=== PATIENT | male | born 1960 | race Caucasian/White ===

== ENCOUNTER 2019-02-14 06:56 | Emergency (ER) | payer BC ==
[2019-02-14 07:21] LABS: CHLORIDE,CL 105 mEq/L (98-106); SODIUM,NA 142 mEq/L (136-145)
[2019-02-14] MEDS ORDERED: Diltiazem 25 MG/5 ML SDV IVPUSH ONE (07:38)
--- NOTE | 2019-02-14 07:56 | EDM.PDOC ---
ED HPI GENERAL MEDICAL PROBLEM - General Chief Complaint: General Stated Complaint: palpitations Time Seen by Provider: 02/14/19 07:30 Source of Information: Reports: Patient History Limitations: Reports: No Limitations - History of Present Illness INITIAL COMMENTS - FREE TEXT/NARRATIVE: Patient presents to ER per private vehicle with palpitations. States has had similar concerns like this many years ago, history of atrial fib. Had some propanefone left at home from 15 years ago so took one of these meds but didn't see any improvement with this so presented here. Did have thorough work up at that time, was on meds for a short time but converted to normal rhythm and has done well since. He admits to mild chest discomfort. No shortness of breath. Has been recently started on blood pressure meds in the last few months. Was initially started on Lisinopril but developed a cough. Switched to Losartan 50 mg and has had his dose increased to 100 mg to get better control of his blood pressure. Onset: Today, Sudden Duration: Hour(s): Location: Reports: Chest Quality: Reports: Ache, Dull Severity: Mild Associated Symptoms: Reports: Chest Pain. Denies: Confusion, Cough, Diaphoresis , Fever/Chills, Loss of Appetite, Nausea/Vomiting, Shortness of Breath, Weakness Treatments CUSTOMER SALES REPRESENTATIVE: Reports: Other (see below) Other Treatments CUSTOMER SALES REPRESENTATIVE: propanfenome - Related Data Allergies Allergy/AdvReac Type Severity Reaction Status Date / Time Penicillins Allergy UNKNOWN Verified 02/14/19 07:12 ERYTHROMYCIN Allergy UNKNOWN Uncoded 02/14/19 07:12 SULFA ANTIBIOTICS Allergy UNKNOWN Uncoded 02/14/19 07:12 Home Meds: Home Meds Ibuprofen 400 mg PO ASDIRECTED PRN 04/07/16 [History] Ascorbic Acid [Vitamin C] 1 tab PO DAILY 02/14/19 [History] Cholecalciferol (Vitamin D3) [Vitamin D3] 1 tab PO DAILY 02/14/19 [History] Losartan/Hydrochlorothiazide [Losartan-HCTZ 100-25 MG] 1 each PO DAILY 02/14/19 [History] Magnesium Oxide [Magnesium] 1 tab PO DAILY 02/14/19 [History] Past Medical History Cardiovascular History: Reports: Afib, Hypertension Gastrointestinal History: Reports: Diverticulosis Endocrine/Metabolic History: Reports: Vitamin D Deficiency - Past Surgical History HEENT Surgical History: Reports: Tonsillectomy GI Surgical History: Reports: Appendectomy, Colon Musculoskeletal Surgical History: Reports: Arthroscopic Procedure Social & Family History - Family History Family Medical History: Noncontributory - Tobacco Use Smoking Status *Q: Former Smoker Used Tobacco, but Quit: Yes Month/Year Tobacco Last Used: years ago - Caffeine Use Caffeine Use: Reports: Coffee ED ROS GENERAL - Review of Systems Review Of Systems: See Below Constitutional: Reports: Fatigue. Denies: Fever, Chills, Malaise, Weakness HEENT: Denies: Ear Pain, Sinus Problem, Throat Pain, Vertigo Respiratory: Denies: Shortness of Breath, Cough Cardiovascular: Reports: Chest Pain (mild chest discomfort), Lightheadedness. Denies: Edema Endocrine: Reports: Fatigue GI/Abdominal: Denies: Abdominal Pain, Nausea, Vomiting : Reports: No Symptoms Musculoskeletal: Reports: No Symptoms Skin: Reports: No Symptoms Neurological: Reports: No Symptoms Psychiatric: Reports: No Symptoms ED EXAM, GENERAL - Physical Exam Exam: See Below Exam Limited By: No Limitations General Appearance: Alert, WD/WN, No Apparent Distress Ears: Normal External Exam, Normal TMs Nose: Normal Inspection, Normal Mucosa, No Blood Throat/Mouth: Normal Inspection, Normal Oropharynx Head: Normocephalic Neck: Normal Inspection, Supple, Non-Tender Respiratory/Chest: No Respiratory Distress, Lungs Clear, Normal Breath Sounds Cardiovascular: Irregularly Irregular GI/Abdominal: Normal Bowel Sounds, Soft, Non-Tender Extremities: Normal Inspection, No Pedal Edema Neurological: Alert, Oriented Skin Exam: Warm, Dry Course - Vital Signs Last Recorded V/S: Last Vital Signs Temp 96.9 F 02/14/19 07:14 Pulse 120 H 02/14/19 07:55 Resp 18 02/14/19 07:55 BP 100/64 02/14/19 07:55 Pulse Ox 97 02/14/19 07:55 - Orders/Labs/Meds Orders: Active Orders 24 hr Category Date Time Status EKG Documentation Completion [RC] STAT Care 02/14/19 07:43 Active Chest 2V [CR] Routine Exams 02/14/19 Ordered Labs: Laboratory Tests 02/14/19 02/14/19 02/14/19 Range/Units 07:02 07:02 07:02 WBC 5.3 (5.0-10.0) 10^3/uL RBC 5.01 (4.50-6.00) 10^6/uL Hgb 15.9 (14.0-18.0) g/dL Hct 46.3 (40.0-54.0) % MCV 92.4 (82.0-94.0) fL MCH 31.7 (27.0-32.0) pg MCHC 34.3 (33.0-38.0) g/dL RDW Coeff of [place]z 12.4 (11.0-15.0) % Plt Count 180 (150-400) 10^3/uL Neut % (Auto) 40.7 (35-85) % Lymph % (Auto) 41.2 (10-55) % [place] % (Auto) 10.2 (0-16) % Eos % (Auto) 7.3 H (0-5) % Baso % (Auto) 0.6 (0-3) % Neut # (Auto) 2.16 (1.80-7.00) 10^3/uL Lymph # (Auto) 2.19 (1.00-4.80) 10^3/uL [place] # (Auto) 0.54 (0.00-0.80) 10^3/uL Eos # (Auto) 0.39 (0.00-0.45) 10^3/uL Baso # (Auto) 0.03 10^3/uL PT 10.2 (9.7-12.3) SEC INR 0.99 (0.92-1.18) APTT 27.4 (23.2-32.3) SEC Sodium 142 (136-145) mEq/L Potassium 3.8 (3.5-5.0) mEq/L Chloride 105 (98-106) mEq/L Carbon Dioxide 28 (21-32) mmol/L BUN 24 H (7-18) mg/dL Creatinine 0.9 (0.7-1.3) mg/dL Est Cr Clr Drug Dosing TNP Estimated GFR (MDRD) > 60 (>=60) mL/min Glucose 103 H (75-99) mg/dL Calcium 8.8 (8.4-10.1) mg/dL Lactate Dehydrogenase 184 (100-190) U/L Creatine Kinase 131 (35-232) U/L Troponin I < 0.017 (0.00-0.06) ng/mL Meds: Medications Discontinued Medications Generic Name Dose Route Start Last Admin Trade Name Matt PRN Reason Stop Dose Admin Apixaban 5 mg 02/14/19 08:08 Eliquis PO 02/14/19 08:09 ONETIME ONE Diltiazem HCl 10 mg 02/14/19 07:38 02/14/19 07:44 Diltiazem IVPUSH 02/14/19 07:39 10 mg ONETIME ONE Administration - Re-Assessments/Exams Free Text/Narrative Re-Assessment/Exam: 02/14/19 0745 Cardizem 10 mg IV given. Did slow rate but 110s, continues with atrial fib. Blood pressure did drop to 100/64. [address] [facility] and spoke with Dr. Casas, housekeeper/laundry assistant. Suggested would need cardioversion under conscious sedation. Give Eliquis 5 mg now. Spoke with Dr. Gee, ER physician about transfer. Both physicians agree to accept the patient in transfer. Risks and benefits discussed with patient. Risk of transfer includes vehicle crash, worsening condition, possible . Benefits of transfer include specialized cardiac care and intervention. Risks of non transfer include no specialized cardiac care at local facility, worsening status or possible . Benefits of non transfer include care close to home. Patient and agree to transfer. Departure - Departure Time of Disposition: 08:32 Disposition: DC/Tfer to Acute Hospital 02 Clinical Impression: Atrial fibrillation with RVR - Discharge Information *PRESCRIPTION DRUG MONITORING PROGRAM REVIEWED*: No *COPY OF PRESCRIPTION DRUG MONITORING REPORT IN PATIENT ORACIO: No Forms: ED Department Discharge Additional Instructions: Transfer ALS to [facility] to Dr. Casas, Dr. Gee. Keep NPO - My Orders Last 24 Hours: My Active Orders 02/14/19 Chest 2V [CR] Routine 02/14/19 07:43 EKG Documentation Completion [RC] STAT - Assessment/Plan Last 24 Hours: My Active Orders 02/14/19 Chest 2V [CR] Routine 02/14/19 07:43 EKG Documentation Completion [RC] STAT
[2019-02-14] MEDS ORDERED: Apixaban 5 MG Tab PO ONE (08:08)
[2019-02-14 09:16] VITALS: BP 122/79
== END 2019-02-14 09:59 ==
LOC: CC.ED 06:56
DX: I48.91 Unspecified atrial fibrillation (principal); I10 Essential (primary) hypertension; Z87.891 Personal history of nicotine dependence; Z79.899 Other long term (current) drug therapy; Z88.0 Allergy status to penicillin; Z88.1 Allergy status to other antibiotic agents; Z88.2 Allergy status to sulfonamides
CPT/HCPCS: 36415; 71046; 80048; 82550; 83615; 84484; 85025; 85610; 85730; 93005; 96374; 99285; A9270; J3490

== ENCOUNTER 2021-06-10 19:57 | Emergency (ER) | payer BC ==
[2021-06-10 20:09] VITALS: BP 152/90; PULSE 75
[2021-06-10] MEDS ORDERED: Take Home: Ciprofloxacin 500 MG Tab, 2 Tab Pack PO ONE (20:21)
[2021-06-10] MEDS ORDERED: Take Home: metroNIDAZOLE 500 MG Tab, 4 Tab Pack PO ONE (20:21)
--- NOTE | 2021-06-10 20:29 | EDM.PDOC ---
ED HPI GENERAL MEDICAL PROBLEM - General Chief Complaint: General Stated Complaint: ABD Pain Time Seen by Provider: 06/10/21 20:15 Source of Information: Reports: Patient History Limitations: Reports: No Limitations - History of Present Illness INITIAL COMMENTS - FREE TEXT/NARRATIVE: Reynaldo is a 61 year old male who presents to ER with complaints of lower quadrant abdominal pain. States "feels just like when have had diverticulitis in the past". Relates has had multiple episodes of this infection until had a colectomy done 4 years ago for it. Has done fairly well since that time but started having pain about 3 days ago. Got much worse today. No fevers. No chest congestion, cough. No nausea/vomiting. No bowel changes, no blood in stools. No urinary symptoms. Is requesting to not have a work up to include lab and xray, wanting to get started on antibiotics as had in the past and will come back if symptoms do not improve. "have been able to do this in the past" Onset: Gradual Duration: Day(s):, Getting Worse Location: Reports: Abdomen Quality: Reports: Ache Severity: Moderate Improves with: Reports: Medication Associated Symptoms: Denies: Confusion, Chest Pain, Cough, Fever/Chills, Loss of Appetite, Nausea/Vomiting, Shortness of Breath Treatments MANAGER STORE: Reports: NSAIDS mid lower abd Pain Score (Numeric/FACES): 4 - Related Data Allergies Allergy/AdvReac Type Severity Reaction Status Date / Time Penicillins Allergy UNKNOWN Verified 06/10/21 20:09 ERYTHROMYCIN Allergy UNKNOWN Uncoded 06/10/21 20:09 SULFA ANTIBIOTICS Allergy UNKNOWN Uncoded 06/10/21 20:09 Home Meds: Home Meds Ibuprofen 200 mg PO ASDIRECTED PRN 04/07/16 [History] Ascorbic Acid [Vitamin C] 1 tab PO DAILY 02/14/19 [History] Cholecalciferol (Vitamin D3) [Vitamin D3] 1 tab PO DAILY 02/14/19 [History] Magnesium Oxide [Magnesium] 1 tab PO DAILY 02/14/19 [History] Acetaminophen [Tylenol Extra Strength] 500 mg PO ASDIRECTED PRN 02/19/19 [History] Metoprolol Succinate [Toprol XL] 25 mg PO DAILY 02/19/19 [History] Past Medical History Cardiovascular History: Reports: Afib, Hypertension Gastrointestinal History: Reports: Diverticulosis Endocrine/Metabolic History: Reports: Vitamin D Deficiency - Past Surgical History HEENT Surgical History: Reports: Tonsillectomy GI Surgical History: Reports: Appendectomy, Colon Musculoskeletal Surgical History: Reports: Arthroscopic Procedure Social & Family History - Family History Family Medical History: No Pertinent Family History - Tobacco Use Tobacco Use Status *Q: Unknown Ever Used Tobacco - Caffeine Use Caffeine Use: Reports: Coffee ED ROS GENERAL - Review of Systems Review Of Systems: See Below Constitutional: Denies: Fever, Chills, Malaise, Weakness, Fatigue, Decreased Appetite HEENT: Denies: Ear Pain, Sinus Problem, Throat Pain, Vertigo Respiratory: Denies: Shortness of Breath, Cough Cardiovascular: Denies: Chest Pain, Edema, Lightheadedness Endocrine: Denies: Fatigue GI/Abdominal: Reports: Abdominal Pain. Denies: Black Stool, Bloody Stool, Constipation, Diarrhea, Nausea, Vomiting : Reports: No Symptoms Musculoskeletal: Reports: No Symptoms Skin: Reports: No Symptoms Neurological: Reports: No Symptoms Psychiatric: Reports: No Symptoms ED EXAM, GENERAL - Physical Exam Exam: See Below Exam Limited By: No Limitations General Appearance: Alert, WD/WN, No Apparent Distress Ears: Normal External Exam, Normal TMs Nose: Normal Inspection, Normal Mucosa, No Blood Throat/Mouth: Normal Inspection, Normal Oropharynx Head: Normocephalic Neck: Normal Inspection, Supple, Non-Tender Respiratory/Chest: No Respiratory Distress, Lungs Clear, Normal Breath Sounds Cardiovascular: Regular Rate, Rhythm GI/Abdominal: Normal Bowel Sounds, Soft, Tender (suprapubic and left lower quadrant tenderness with palpation) Extremities: Normal Inspection, No Pedal Edema Neurological: Alert, Oriented Skin Exam: Warm, Dry Course - Vital Signs Last Recorded V/S: Last Vital Signs Temp 97.4 F 06/10/21 20:07 Pulse 75 06/10/21 20:07 Resp 16 06/10/21 20:07 BP 152/90 H 06/10/21 20:07 Pulse Ox 98 06/10/21 20:07 - Orders/Labs/Meds Meds: Medications Discontinued Medications Generic Name Dose Route Start Last Admin Trade Name Freq PRN Reason Stop Dose Admin Ciprofloxacin 2 packet 06/10/21 20:21 Take Home: Ciprofloxacin 500 Mg Tab, 2 Tab Pack PO 06/10/21 20:22 ONETIME ONE Metronidazole 1 packet 06/10/21 20:21 Take Home: Metronidazole 500 Mg Tab, 4 Tab Pack PO 06/10/21 20:22 ONETIME ONE - Re-Assessments/Exams Free Text/Narrative Re-Assessment/Exam: 06/10/21 20:29 discussed use of meds and need to return if symptoms worsen or do not improve as would suggest labs and CT scan at that time. Departure - Departure Time of Disposition: 20:29 Disposition: Home, Self-Care 01 Condition: Good Clinical Impression: Diverticulitis - Discharge Information *PRESCRIPTION DRUG MONITORING PROGRAM REVIEWED*: No *COPY OF PRESCRIPTION DRUG MONITORING REPORT IN PATIENT ORACIO: No Instructions: Diverticulitis, [id number] Additional Instructions: 1. Push fluids 2. [place]/soft diet 3. Tylenol or ibuprofen for fever or discomfort 4. Cipro 500 mg every 12 hours for 10 days 5. Flagyl 500 mg twice a day for 7 days 6. Follow up if persistent pain, fevers, change in bowel or urinary issues. 7. Call with any questions or concerns. Sepsis Event Note (ED) - Evaluation Sepsis Screening Result: No Definite Risk - Focused Exam Vital Signs: Vital Signs Temp Pulse Resp BP Pulse Ox 06/10/21 20:07 97.4 F 75 16 152/90 H 98
== END 2021-06-10 20:47 | disposition home or self-care (01) ==
LOC: CC.ED 19:57
DX: K57.92 Diverticulitis of intestine, part unspecified, without perforation or abscess without bleeding (principal); I48.91 Unspecified atrial fibrillation; I10 Essential (primary) hypertension; Z88.0 Allergy status to penicillin; Z88.1 Allergy status to other antibiotic agents; Z88.2 Allergy status to sulfonamides; Z79.899 Other long term (current) drug therapy
CPT/HCPCS: 99283; A9270-GY

== ENCOUNTER 2021-11-17 06:33 | Emergency (ER) | payer BC ==
[2021-11-17] MEDS: Aspirin 81 MG Tab.Chew PO ONE (07:08)
[2021-11-17 07:18] VITALS: BP 126/84; PULSE 86
[2021-11-17 07:41] LABS: CHLORIDE,CL 107 mEq/L (98-106); SODIUM,NA 145 mEq/L (136-145)
== END 2021-11-17 08:06 | disposition home or self-care (01) ==
LOC: CC.ED 06:33
DX: I48.91 Unspecified atrial fibrillation (principal); I10 Essential (primary) hypertension; Z88.0 Allergy status to penicillin; Z88.2 Allergy status to sulfonamides; Z88.1 Allergy status to other antibiotic agents
CPT/HCPCS: 36415; 71045; 80053; 83735; 84484; 85025; 93005; 99284; 99285-25; A9270-GY